=== PATIENT | female | born 1965 | race Caucasian/White ===

== ENCOUNTER 2018-09-16 15:51 | Emergency (ER) | payer BC ==
[~2018-09-16] VITALS: Ht 160 cm; Wt 77.3 kg
[2018-09-16] MEDS ORDERED: KETOROLAC 30 MG/ML VIAL (J1885) IV ONE (16:45)
--- NOTE | 2018-09-16 17:34 | REP ---
Clinical: Right upper quadrant pain. Technique: Real time goode scale ultrasound examination using curved array transducer. Findings: Liver and pancreas are normal in contour, size, echogenicity without focal hepatic or pancreatic lesions identified. Gallbladder is filled with sludge and gravel, but without wall thickening. Small amount of pericholecystic fluid cannot be excluded. No biliary ductal dilatation is appreciated and the common bile duct measures 4.5 mm diameter. The right kidney is normal in reniform shape without hydronephrosis and measures 11.1 x 5.2 x 4.9 cm. Impression: 1. Cholelithiasis and possible small amount of pericholecystic fluid. No further sonographic evidence to suggest acute cholecystitis. Clinical correlation is required. Electronically Signed by Cole Wiley MD 09/16/2018 05:26 P
[2018-09-16 17:40] LABS: BASO # 0.1 10^3/uL (0.0-0.2); BASO % 0.7 % (0.0-1.0); EOS # 0.2 10^3/uL (0.0-0.50); EOS % 1.4 % (0.0-3.0); HEMATOCRIT 43.4 % (36.0-47.0); HEMOGLOBIN 14.3 g/dl (12.0-15.5); LYMPH # 1.7 10^3/uL (1.5-4.5); LYMPH % 15.7 % (24.0-44.0); MEAN CORPUSCULAR HEMOGLOBIN 31.2 pg (27.0-33.0); MEAN CORPUSCULAR HGB CONC 32.9 g/dl (32.0-36.5); MEAN CORPUSCULAR VOLUME 94.6 fl (80.0-96.0); MONO # 0.5 10^3/uL (0.0-0.8); MONO % 4.3 % (0.0-5.0); NEUTROPHILS # 8.1 10^3/uL (1.8-7.7); NEUTROPHILS % 77.6 % (36.0-66.0); PLATELET COUNT, AUTOMATED 217 10^3/uL (150-450); RED BLOOD COUNT 4.59 10^6/uL (4.00-5.40); WHITE BLOOD COUNT 10.5 10^3/uL (4.0-10.0)
[2018-09-16 18:09] LABS: ALBUMIN 4.2 GM/DL (3.2-5.2); ALT/SGPT 34 U/L (12-78); BILIRUBIN,DIRECT < 0.1 MG/DL (0.0-0.2); BILIRUBIN,TOTAL 0.3 MG/DL (0.2-1.0); BLOOD UREA NITROGEN 18 MG/DL (7-18); CALCIUM LEVEL 9.3 MG/DL (8.5-10.1); CARBON DIOXIDE LEVEL 24 MEQ/L (21-32); CHLORIDE LEVEL 110 MEQ/L (98-107); CREATININE FOR GFR 0.71 MG/DL (0.55-1.30); GLOMERULAR FILTRATION RATE > 60.0 (>51); GLUCOSE, FASTING 87 MG/DL (70-100); LIPASE 61 U/L (73-393); POTASSIUM SERUM 5.8 MEQ/L (3.5-5.1); SODIUM LEVEL 142 MEQ/L (136-145); TOTAL PROTEIN 7.3 GM/DL (6.4-8.2)
[2018-09-16] MEDS ORDERED: ONDA4TAB6 PO (18:20)
[2018-09-16] MEDS ORDERED: KETO10TAB PO (18:20)
[2018-09-16 18:51] VITALS: BP 136/76
--- NOTE | 2018-09-17 12:48 | ED PDOC ---
Post-Departure Follow-Up candice suero and dr hyatt faxed formal report of us for fu Marily Costa MD Sep 17, 2018 12:48
== END 2018-09-16 18:52 | disposition home or self-care (01) ==
LOC: M ED 15:51
DX: K80.70 Calculus of gallbladder and bile duct without cholecystitis without obstruction (principal); Z72.0 Tobacco use
CPT/HCPCS: 76705; 80048; 80076; 83690; 85025; 96374; 99284; J1885

== ENCOUNTER 2018-09-21 17:49 | Emergency (ER) | payer BC ==
[~2018-09-21] VITALS: Ht 160 cm; Wt 75.0 kg
[~2018-09-21 17:49] MED LIST: KETO10TAB PO; ONDA4TAB6 PO
[2018-09-21] MEDS ORDERED: ACET1TAB55 PO (18:07)
[2018-09-21] MEDS ORDERED: IBUP-1022 PO (18:07)
[2018-09-21 18:53] LABS: BASO # 0.1 10^3/uL (0.0-0.2); BASO % 0.4 % (0.0-1.0); EOS # 0.1 10^3/uL (0.0-0.50); EOS % 0.8 % (0.0-3.0); HEMATOCRIT 43.7 % (36.0-47.0); HEMOGLOBIN 14.2 g/dl (12.0-15.5); MEAN CORPUSCULAR HEMOGLOBIN 30.7 pg (27.0-33.0); MEAN CORPUSCULAR HGB CONC 32.5 g/dl (32.0-36.5); MEAN CORPUSCULAR VOLUME 94.4 fl (80.0-96.0); MONO # 0.6 10^3/uL (0.0-0.8); MONO % 5.3 % (0.0-5.0); NEUTROPHILS # 8.8 10^3/uL (1.8-7.7); NEUTROPHILS % 76.2 % (36.0-66.0); PLATELET COUNT, AUTOMATED 229 10^3/uL (150-450); RED BLOOD COUNT 4.63 10^6/uL (4.00-5.40); WHITE BLOOD COUNT 11.5 10^3/uL (4.0-10.0)
[2018-09-21] MEDS ORDERED: NS 1,000 ML IV ONE (19:00)
[2018-09-21] MEDS ORDERED: METOCLOPRAMIDE INJ 10MG/2ML VIAL (J2765) IV ONE (19:00)
[2018-09-21 19:02] LABS: ALBUMIN 4.2 GM/DL (3.2-5.2); ALT/SGPT 29 U/L (12-78); BILIRUBIN,DIRECT 0.1 MG/DL (0.0-0.2); BILIRUBIN,TOTAL 0.4 MG/DL (0.2-1.0); BLOOD UREA NITROGEN 12 MG/DL (7-18); CALCIUM LEVEL 8.8 MG/DL (8.5-10.1); CARBON DIOXIDE LEVEL 24 MEQ/L (21-32); CHLORIDE LEVEL 111 MEQ/L (98-107); CREATININE FOR GFR 0.69 MG/DL (0.55-1.30); GLOMERULAR FILTRATION RATE > 60.0 (>51); GLUCOSE, FASTING 106 MG/DL (70-100); LIPASE 61 U/L (73-393); POTASSIUM SERUM 3.6 MEQ/L (3.5-5.1); SODIUM LEVEL 143 MEQ/L (136-145)
[2018-09-21] MEDS: MORPHINE 4 MG/ML 1ML VIAL/SYRINGE (J2270) IV PRN ×2 (19:11→21:28)
[2018-09-21 19:21] LABS: CPK CREATINE PHOSPHOKINASE 115 U/L (26-192); MB/CK RELATIVE INDEX 1.04 (< OR =4); TROPONIN I < 0.02 NG/ML (< 0.10)
--- NOTE | 2018-09-21 19:32 | ECGEPIP ---
Stationary ECG Study [facility] - ED Test Date: 2018-09-21 Pat Name: SINTIA SHEETS Department: Room: - Gender: F [employer]: af : 1965 Requested By: FREDDY Loera PA-C Order Number: [id number] Reading MD: Marily Bethea Measurements Intervals [place] Rate: 53 P: 61 NE: 156 QRS: 37 QRSD: 93 T: 47 QT: 419 QTc: 396 Interpretive Statements SINUS BRADYCARDIA NONSPECIFIC ST T WAVE CHANGES CW 6/155/[address] t wave changes Electronically Signed On 09-21-2018 19:32:01 EST by Marily Bethea
[2018-09-21 21:00] VITALS: BP 138/78
--- NOTE | 2018-09-21 21:01 | REPVR ---
EXAM: US Abdomen Limited, Right Upper Quadrant EXAM DATE/TIME: 09/21/2018 8:02 PM CLINICAL HISTORY: 53 years old, female; Pain; Abdominal pain; Epigastric; Additional info: Epigastric pain, known stones TECHNIQUE: Real-time ultrasound of the abdomen with image documentation. Examination was focused on the right upper quadrant. COMPARISON: GALLBLADDER US 09/16/2018 5:05 PM FINDINGS: Liver: There is mild fatty infiltration of the liver. Gallbladder: The gallbladder is filled with sludge and tiny floating gallstones. The gallbladder wall measures 4 mm which is abnormally thickened. This can be seen with changes of cholecystitis. Correlation with HIDA scan may be considered. Common bile duct: The common bile duct is normal in size measuring 4 mm. Pancreas: The pancreas appears normal in size. Right kidney: The right kidney measures 11.9 CM in length with no evidence of hydronephrosis. IMPRESSION: 1. The gallbladder is filled with sludge and tiny floating gallstones throughout. 2. There is mild thickening of the gallbladder wall and possibly mild edema of the wall. The gallbladder wall measures 4 mm which can be seen with cholecystitis. Suggest correlation with a HIDA scan. Electronically signed by: Gopi Florian On 09/21/2018 21:01:02 PM
[2018-09-21] MEDS ORDERED: fentaNYL 100 MCG/2 ML INJECTION (J3010) IV ONE (21:30)
[2018-09-21] MEDS ORDERED: AUGMENTIN 875 MG TAB PO ONE (21:30)
[2018-09-21] MEDS ORDERED: REGL10TA6 PO (21:56)
[2018-09-21] MEDS ORDERED: PERC5TAB12 PO (21:56)
[2018-09-21] MEDS ORDERED: AUGM875T28 PO (21:56)
[2018-09-21] MEDS ORDERED: OXYCODONE/APAP 5MG/325MG(BULK FOR ED) 1 TABLET PO ONE (22:00)
--- NOTE | 2018-09-23 06:45 | ED PDOC ---
Post-Departure Follow-Up dr dillon faxed formal report of us for fu Marily Costa MD Sep 23, 2018 06:44
== END 2018-09-21 22:07 | disposition home or self-care (01) ==
LOC: M ED 17:49
DX: K80.00 Calculus of gallbladder with acute cholecystitis without obstruction (principal); D72.829 Elevated white blood cell count, unspecified; R00.1 Bradycardia, unspecified; R11.2 Nausea with vomiting, unspecified; Z87.19 Personal history of other diseases of the digestive system; F17.200 Nicotine dependence, unspecified, uncomplicated
CPT/HCPCS: 36415; 76705; 80048; 80076; 81001; 82550; 82553; 83690; 85025; 93005; 96374; 96375; 96376; 99284; J2270; J2765; J3010

== ENCOUNTER 2018-09-30 10:26 | Day surgery (SDC) | payer BC, SELFPAY ==
[~2018-09-30] VITALS: Ht 160 cm; Wt 77.3 kg
[~2018-09-30 10:26] MED LIST changes: +ACET1TAB55 PO; +AUGM875T28 PO; +IBUP-1022 PO; +LR 1,000 ML IV ONE; +PERC5TAB12 PO; +REGL10TA6 PO
[2018-09-30] MEDS ORDERED: BUPIVACAINE/EPIN 0.25% 30 ML VIAL As Ordered ONE (13:35)
[2018-09-30] MEDS ORDERED: LIDOCAINE 2% INJ 100 MG/5 ML SDV (FOR ANES.) As Ordered ONE (14:18)
[2018-09-30] MEDS ORDERED: SUGAMMADEX SODIUM 500 MG/5 ML VIAL (BRIDION) As Ordered ONE (14:18)
[2018-09-30] MEDS ORDERED: MIDAZOLAM INJ 2 MG/2 ML VIAL (J2250) As Ordered ONE (14:18)
[2018-09-30] MEDS ORDERED: fentaNYL 250 MCG/5 ML INJECTION (J3010) As Ordered ONE (14:18)
[2018-09-30] MEDS ORDERED: dexameTHASONE 4 MG/ML 1ML VIAL (J1100) As Ordered ONE (14:18)
[2018-09-30] MEDS ORDERED: ONDANSETRON 4MG/2ML VIAL (J2405) As Ordered ONE (14:18)
[2018-09-30] MEDS ORDERED: ROCURONIUM BROMIDE 50 MG/5 ML VIAL As Ordered ONE ×2 (14:18→15:01)
[2018-09-30] MEDS ORDERED: PROPOFOL 200 MG/20 ML VIAL As Ordered ONE ×2 (14:18→15:59)
[2018-09-30] MEDS ORDERED: KETOROLAC 60 MG/2 ML VIAL (J1885) As Ordered ONE (14:35)
[2018-09-30] MEDS: fentaNYL 100 MCG/2 ML INJECTION (J3010) IV PRN ×4 (16:44→17:02)
[2018-09-30] MEDS ORDERED: HYDROMORPHONE HCL 0.5 MG/ 0.5 ML SYRINGE (J1170 PER 1) IV PRN (16:45)
[2018-09-30] MEDS ORDERED: LR 1,000 ML IV SCH (16:45)
[2018-09-30] MEDS: PERCOCET 5MG/325MG TAB PO PRN ×2 (16:45→17:25)
[2018-09-30] MEDS ORDERED: ONDANSETRON 4MG/2ML VIAL (J2405) IV PRN (16:45)
[2018-09-30] MEDS ORDERED: NORCO, ANEXSIA 5/325MG TABLET (HYDROcodone/ACETAMINOPHEN) PO PRN (16:45)
[2018-09-30 18:10] VITALS: BP 144/80
--- NOTE | 2018-10-01 14:54 | RO ---
DATE OF PROCEDURE: 09/30/2018 PREOPERATIVE DIAGNOSIS: Symptomatic cholelithiasis. POSTOPERATIVE DIAGNOSIS: Chronic cholecystitis with cholelithiasis. PROCEDURE: Laparoscopic cholecystectomy. SURGEON: Trace Banegas DO BOLT LOADER: Janette Frazier NP ANESTHESIA: General. ESTIMATED BLOOD LOSS (EBL): 10. COMPLICATIONS: None. INDICATIONS FOR PROCEDURE: The patient is a 53-year-old female, presents with symptomatic cholelithiasis from her quadrant pain. Recommendation was to proceed laparoscopic and possible open cholecystectomy. Risks and benefits of the procedure not limited but including bleeding, infection, hernia formation, damage to surrounding structures, need for further surgery were discussed in detail with the patient. Informed consent was obtained and procedure was planned. DESCRIPTION OF PROCEDURE: The patient was brought back to operating room #7 after sufficient sedation. The abdomen sterilely prepped and draped. Next, a time-out was done to confirm proper patient and proper procedure. Following that a stab incision was made in the left upper quadrant. Veress needle was inserted and the abdomen was insufflated to 50 mmHg. Next, a 5 mm supraumbilical midline incision was made and a 5 mm Optiview port used to gain access to the abdomen. Once the abdomen was entered, Veress needle site was examined. There were no signs of any injury. The Veress needle was then removed. Another 11 mm port was placed subxiphoid and two 5 mm ports in the right upper quadrant. Fundus of the gallbladder was grasped, elevated up towards the right shoulder. It was a very dilated and distended gallbladder, so I cut a hole in it and aspirated it, which revealed hydrops. Next, the omentum and peritoneal adhesions along the body and the fundus were gently taken down using a combination of blunt and sharp dissection. Eventually I was able to find the cystic duct, carefully dissected it free again using some sharp and blunt dissection. Once that was completed, I was able to the easily encircle it and place two sets of clips. I then cut the ducts. The artery was visualized. It appeared to be very small. I was able to just cut it with cautery. The gallbladder was then carefully taken off of the gallbladder fossa using electrocautery. Once that was completed, the gallbladder was brought out through a subxiphoid port site in a 10 mm Endo Catch bag. The abdomen was then desufflated. Skin incisions were closed #4-0 Vicryl subcuticular sutures. The abdomen was cleaned and dried. Steri-Strips, 4 x 4 and tape were applied, thus ending procedure.
== END 2018-09-30 18:20 | disposition home or self-care (01) ==
LOC: M SDC 10:26
PROVIDERS: ATTEND Surgery
DX: K80.20 Calculus of gallbladder without cholecystitis without obstruction (principal); Z87.891 Personal history of nicotine dependence
CPT/HCPCS: 47562; 88304; J1100; J1885; J2250; J2405; J3010

== ENCOUNTER → 2022-12-19 | Outpatient (CLI) | payer BC ==
[~2022-12-19] MED LIST changes: -LR 1,000 ML IV ONE
== END ==
LOC: M RAD 07:53
PROVIDERS: ATTEND Nurse Practitioner Adult Health
DX: M51.16 Intervertebral disc disorders with radiculopathy, lumbar region (principal)

== ENCOUNTER → 2022-12-26 | Outpatient (CLI) | payer BC | LOC: M WHC 12:54 | PROVIDERS: ATTEND Nurse Practitioner Adult Health | DX: Z12.31 Encounter for screening mammogram for malignant neoplasm of breast (principal) ==

== ENCOUNTER 2023-03-02 09:55 | Day surgery (SDC) | payer BC ==
[~2023-03-02] VITALS: Ht 160 cm; Wt 84.5 kg
[~2023-03-02 09:55] MED LIST changes: +GABA-282 PO; +NS 1,000 ML IV ONE; +OMEP40CA4 PO; +RA M10TA PO
[2023-03-02] MEDS ORDERED: propofoL 200 MG/20 ML VIAL As Ordered ONE ×3 (10:30→12:35)
[2023-03-02] MEDS ORDERED: GLYCOPYRROLATE INJ 0.2 MG/ML 2 ML VIAL As Ordered ONE ×2 (12:31→12:35)
[2023-03-02 12:54] VITALS: TEMP 97.3
[2023-03-02 13:11] VITALS: BP 133/79; O2SAT 97
== END 2023-03-02 13:24 | disposition home or self-care (01) ==
LOC: M OPP 09:55
PROVIDERS: ATTEND Internal Medicine Gastroenterology
DX: Z12.11 Encounter for screening for malignant neoplasm of colon (principal); D12.2 Benign neoplasm of ascending colon; K64.8 Other hemorrhoids; K57.30 Diverticulosis of large intestine without perforation or abscess without bleeding; Z79.899 Other long term (current) drug therapy; Z79.891 Long term (current) use of opiate analgesic

== ENCOUNTER 2024-01-17 08:45 | Day surgery (SDC) | payer BC ==
[~2024-01-17] VITALS: Ht 160 cm; Wt 82.6 kg
[~2024-01-17 08:45] MED LIST changes: +GABA600T4 PO; +ONDA-282 PO; -ONDA4TAB6 PO
[2024-01-17] MEDS ORDERED: LIDOCAINE 2% 100MG/5ML SDV (FOR ANES.) As Ordered ONE (08:50)
[2024-01-17] MEDS ORDERED: propofoL 200 MG/20 ML VIAL As Ordered ONE (08:50)
[2024-01-17 11:18] VITALS: TEMP 97.6
[2024-01-17 11:34] VITALS: BP 131/60; O2SAT 96
== END 2024-01-17 11:37 | disposition home or self-care (01) ==
LOC: M OPP 08:45
PROVIDERS: ATTEND Internal Medicine Gastroenterology
DX: Z86.010 Personal history of colon polyps (principal); Z09 Encounter for follow-up examination after completed treatment for conditions other than malignant neoplasm; K63.5 Polyp of colon; Z98.890 Other specified postprocedural states; Z87.891 Personal history of nicotine dependence

== ENCOUNTER → 2025-03-07 | Outpatient (REF) | payer BC ==
[~2025-03-07] MED LIST changes: +GABA-1172 PO; +GABA-1490 PO; -GABA-282 PO; -GABA600T4 PO; -NS 1,000 ML IV ONE
== END ==
LOC: M LAB REF 12:03
PROVIDERS: ATTEND Nurse Practitioner Adult Health
DX: R19.7 Diarrhea, unspecified (principal)